=== PATIENT | male | born 1965 | race African-American/Black ===

== ENCOUNTER 2023-04-18 07:46 | Emergency (ER) | payer OTHER ==
[2023-04-18 08:33] LABS: #Basophils 0.1 thou/uL (0.0-0.2); #Eosinphils 0.2 thou/uL (0.0-0.7); #Lymphocytes 1.3 thou/uL (1.20-3.40); #Monocytes 0.4 thou/uL (0.11-0.59); #Neutrophils 3.8 thou/uL (1.40-6.50); %Basophils 1.5 % (0.0-1.0); %Eosinophils 4.1 % (0.0-10.0); %Lymphocytes 21.4 % (21.0-51.0); %Monocytes 7.3 % (0.0-10.0); %Neutrophils 65.6 % (42.0-75.0); Hematocrit 41.7 % (42.0-52.0); Hemoglobin 13.5 g/dL (14.0-18.0); Mean Corpuscular HGB CONC 32.3 g/dL (32.0-36.0); Mean Corpuscular Hemoglobin 28.9 pg (27.0-31.0); Mean Corpuscular Volume 89.3 fl (78.0-98.0); Mean Platelet Volume 5.7 fL (7.4-10.4); Platelet Count 214 10x3/uL (130-400); RBC Distribution Width 11.9 % (11.5-14.5); Red Blood Cell (RBC) Count 4.66 mill/uL (4.70-6.10); White Blood Cell (WBC) Count 5.9 10x3/uL (4.8-10.8)
[2023-04-18] MEDS ORDERED: Nitroglycerin 0.4 MG TAB 1 EACH ONE (08:36)
[2023-04-18] MEDS ORDERED: Ondansetron PF 4 MG/2 ML Vial ONE (08:36)
[2023-04-18] MEDS ORDERED: Aspirin Chewable 81 MG TAB ONE (08:36)
[2023-04-18 08:42] LABS: Troponin I Less than 0.010 ng/mL (< 0.028)
[2023-04-18 08:56] LABS: ALT (SGPT) 28 U/L (8-55); AST (SGOT) 19 U/L (5-34); Albumin 3.7 g/dL (3.5-5.0); Alkaline Phosphatase 88 U/L (40-110); Anion Gap 15 mmol/L (10-20); BUN (Urea Nitrogen) 10 mg/dL (8.4-25.7); Bilirubin, Total 0.4 mg/dL (0.2-1.2); Calc. Creatinine Clearance 0 mL/min (70-130); Calcium 8.9 mg/dL (7.8-10.44); Carbon Dioxide 24 mmol/L (22-29); Chloride 110 mmol/L (98-107); Estimated GFR 97; Globulin 2.5 g/dL (2.4-3.5); Glucose 77 mg/dL (70-105); Lipase 11 U/L (8-78); Potassium 4.2 mmol/L (3.5-5.1); Protein, Total 6.2 g/dL (6.0-8.3); Sodium 145 mmol/L (136-145)
[2023-04-18] MEDS ORDERED: Mag-Al Plus 1200 MG/1200 MG/120 MG/30 ML UDCUP ONE (10:23)
[2023-04-18] MEDS ORDERED: Lidocaine Viscous Sol 2% 15 ml UD Cup ONE (10:23)
[2023-04-18 11:19] LABS: Troponin I Less than 0.010 ng/mL (< 0.028)
[2023-04-18] MEDS ORDERED: Iopamidol 370 76% 100 ML VIAL ONE (12:09)
== END 2023-04-18 13:25 | disposition short-term general hospital (02) ==
LOC: BURERS 07:46
DX: R07.9 Chest pain, unspecified (principal); D18.00 Hemangioma unspecified site; K44.9 Diaphragmatic hernia without obstruction or gangrene; E11.9 Type 2 diabetes mellitus without complications
CPT/HCPCS: 71045; 71275; 74174; 80053; 83690; 84484; 85025; 93005; 94760; 96374; J2405; Q9967